=== PATIENT | male | born 1985 | race Caucasian/White ===

== ENCOUNTER 2017-03-07 21:33 | Emergency (ER) | payer OTHER ==
[~2017-03-07] VITALS: Ht 188 cm; Wt 99.1 kg
--- NOTE | 2017-03-07 21:38 | ED.REPORT ---
HPI-Overdose/Alcohol Toxicity Date of Service Mar 07, 2017 ED Provider: Ramiro Rincon MD A 31 year old male with a history of alcohol abuse and liver inflammation with upper GI bleed is sent to the ED from [facility] for a prescription and medical clearance. [facility] is requesting medical clearance and an Ativan prescription for alcohol withdrawal symptoms. The pt has not been sober for a significant time in several years, and experiences withdrawal symptoms including seizures. He last drank three hours ago. The pt has also been vomiting blood recently and was diagnosed with liver inflammation and upper GI bleed. He is being treated for this as an outpatient. The pt last experienced hematemesis several days ago. Nursing Notes Stated Complaint: DETOX Nursing Notes Reviewed: Yes Allergies: Coded Allergies: Penicillins (Verified Adverse Reaction, Unknown, 03/07/17) General Time Seen by Provider: 22:09 Chief Complaint Other (Medical clearance) Hx Obtained From: Patient Arrived By: Walk-in Onset Occurred: More than a week ago... Symptom Duration: Since onset Recent Healthcare: No recent hospitalization, Recent doctor visit Similar Sx Previous: Yes Past Medical History Past Medical History upper GI bleed liver inflammation Past Surgical History none reported Smoking History Current Every Day Smoker Social History Alcohol Use: 3-5 per day Drug Use: THC Ambulatory Status Independent Review of Systems Respiratory: Denies: Non-productive cough, Shortness of breath Cardiovascular: Denies: Chest pain GI: Reports: Hematemesis Musculoskeletal: Denies: Back pain, Neck pain Skin: Denies Rash Complete sys rev & neg: except as marked. Physical Exam Initial Vital Signs Vital Signs (First) Date Time Temp Pulse Resp B/P Pulse Ox O2 Delivery O2 Flow Rate FiO2 03/07/17 21:54 36.5 104 18 154/95 97 Room Air Initial VS: Reviewed, Vital signs abnormal General/Constitutional: Awake, Alert Respiratory / Chest: Atraumatic, Breath sounds NL, Breath sounds = bilat, No respiratory distress Cardiovascular: Heart rate NL, Regular rhythm, Heart sounds NL no peripheral edema Abdomen: Atraumatic, Soft generally nontender abdomen tender palpable liver margin Neurologic: Oriented X3, Speech NL, No motor deficits, No sensory deficits Psychiatric: Affect NL, Mood NL Head / Eyes: Atraumatic, Normocephalic, PERRL, EOMI facial puffiness ENT: Atraumatic, Airway patent, Mucous membranes moist Neck: Atraumatic, Supple, Full range of motion Back: Atraumatic, Full range of motion Skin: Atraumatic, Color NL, No rash, Warm, Dry Upper Extremity / MS: Atraumatic, Full range of motion Lower Extremity / Pelvis / MS: Atraumatic, Full range of motion Interpretation & Diagnostics Lab Results Interpretation Result Diagram: 03/07/17223903/07/172239 Test 03/07/17 22:40 03/07/17 23:23 White Blood Count 9.5th/mm3 (3.8-10.1) Red Blood Count 5.18mil/mm3 (4.40-5.80) Hemoglobin 17.3g/dL (13.8-17.2) Hematocrit 48.1% (41.0-50.0) Mean Corpuscular Volume 92.9fL (81-100) Mean Corpuscular Hemoglobin 33.4pg (27.0-35.0) Mean Corpuscular Hemoglobin Concent 36.0% (32.0-37.0) Red Cell Distribution Width 12.4% (12.3-15.4) Platelet Count 232bil/L (150-400) Neutrophils (%) (Auto) 55.9% (40-74) Lymphocytes (%) (Auto) 24.4% (14-46) Monocytes (%) (Auto) 18.5% (4-12) Eosinophils (%) (Auto) 0.7% (0-5) Basophils (%) (Auto) 0.2% (0-3) Prothrombin Time 11.0sec (8.1-12.5) Prothromb Time International Ratio 1.03ratio Sodium Level 135mEq/L (134-144) Potassium Level 3.6mEq/L (3.5-5.2) Chloride Level 94mEq/L (97-108) Carbon Dioxide Level 19mmol/L (18-29) Blood Urea Nitrogen 3mg/dL (6-20) Creatinine 0.50mg/dL (0.76-1.27) Estimat Glomerular Filtration Rate 206mL/min (>59) Glucose Level 108mg/dL (60-99) Calcium Level 9.3mg/dL (8.5-10.1) Total Bilirubin 1.0mg/dL (0.0-1.2) Aspartate Amino Transf (AST/SGOT) 255U/L (0-50) Alanine Aminotransferase (ALT/SGPT) 215U/L (0-44) Alkaline Phosphatase 144U/L (25-150) Total Protein 7.5g/dL (6.4-8.4) Albumin 4.5g/dL (3.4-5.0) Thyroid Stimulating Hormone (TSH) 3.270uIU/mL (0.450-4.500) Hold Chand Top Tube Received (Received) Hold Urine Received (Received) Lab values outside NL range: no clinical significance. Lab Results Interpretation: Mildly elevated liver enzymes. Re-Eval/Medical Decision Med Decision/Clinical Course 31-year-old male sent here by [facility] for medical clearance and an Ativan taper. He has a vague history of intermittent GI bleeding which is being evaluated by the GI service. No current bleeding. H&H are normal. He has mild transaminitis secondary to his alcohol use. He is medically stable for detox. He was sent with an Ativan taper prepack. Source of Hx: Old records Re-Evaluation/Progress : Time of Eval: 23:50 Patient Status: Condition improved Re-Evaluation/Progress Note: Pt rechecked, who is comfortable. The diagnosis and plan for discharge to [facility] are discussed. The pt understands and agrees with the plan. All questions are addressed at this time. Consultation : Call Returned at: 23:41 Note: Spoke with [facility] regarding pt's case. Crisis has a bed and accepts the pt. Counseled Regarding: Diagnosis, Lab results, Need for follow-up, When/why to return to ED Discharge & Departure Impression: Primary Impression: Alcohol withdrawal Complication of substance-induced condition: uncomplicated Qualified Code: F10.230 - Alcohol dependence with withdrawal, uncomplicated Additional Impression: Alcoholic hepatitis Ascites presence: without ascites Qualified Code: K70.10 - Alcoholic hepatitis without ascites )( Condition at Discharge: No danger to self, No danger to others, No suicidal ideation, No homicidal ideation, Clear for alcohol rehab Disposition: Home Discharge Condition All VS Reviewed: Yes Condition: Stable Patient Instructions: Alcohol Withdrawal (ED) Additional Instructions: Please see alcohol withdrawal instruction sheet. Go directly by taxi to [facility]. A lorazepam taper prescription is included with instructions. Follow up with GI as planned once you are sober. Referrals: [facility] Scribe Attestation Portions of this note were transcribed by Prasad Jones. I, Dr. Rincon personally performed the history, physical exam and medical decision-making; I reviewed and confirmed the accuracy of the information in the transcribed note. Signed by: Armaan Ingram, 03/07/2017 and [id number]. copies to: [facility] ; [facility] Ramiro Rincon MD Mar 07, 2017 21:38 PRASAD JONES Mar 07, 2017 22:14
[2017-03-07 21:54] VITALS: BP 154/95; PULSE 104; RESP 18; O2SAT 97
[2017-03-07] MEDS ORDERED: _LORazepam 2 MG Tablet PO SCH (22:10)
[2017-03-07] MEDS ORDERED: LORazepam 2 mg Tablet PO ONE (22:10)
[2017-03-07 22:57] LABS: BASOPHILS % (AUTO) 0.2 % (0-3); EOSINOPHILS % (AUTO) 0.7 % (0-5); MONOCYTES % (AUTO) 18.5 % (4-12); Mean Corpuscular Hemoglobin 33.4 pg (27.0-35.0); Mean Corpuscular Volume 92.9 fL (81-100); NEUTROPHILS % (AUTO) 55.9 % (40-74); Platelet Count 232 bil/L (150-400)
[2017-03-07 23:18] LABS: INR 1.03 ratio
[2017-03-07 23:57] VITALS: BP 144/95; PULSE 101; O2SAT 98
== END 2017-03-07 23:59 | disposition home or self-care (01) ==
LOC: SED 21:33
DX: F10.230 Alcohol dependence with withdrawal, uncomplicated (principal); K70.10 Alcoholic hepatitis without ascites; F17.200 Nicotine dependence, unspecified, uncomplicated; Z88.0 Allergy status to penicillin